=== PATIENT | male | born 1950 | race Caucasian/White ===

== ENCOUNTER 2017-07-04 12:34 | Emergency (ER) | payer BC, OTHER ==
[~2017-07-04] VITALS: Ht 182.9 cm; Wt 65.4 kg
[~2017-07-04 12:34] MED LIST: DOXY50CA PO; FLUT50SP14 NAE; LORA10TA5 PO; MEGA RED PO
[2017-07-04 12:37] VITALS: TEMP 36.9; Ht 182.9 cm; Wt 65.4 kg
[2017-07-04] MEDS ORDERED: SODIUM CHLORIDE 0.9% 1000ML 1,000 ML IV STA (12:58)
[2017-07-04] MEDS ORDERED: DiphenhydrAMINE HCL 50 MG/ML VIAL IV STA (12:58)
[2017-07-04] MEDS ORDERED: PROCHLORPERAZINE 5 MG/ML 2 ML VIAL IV STA (12:58)
[2017-07-04] MEDS ORDERED: METHYLPREDNISOLONE 125 MG VIAL IV STA (12:58)
--- NOTE | 2017-07-04 13:03 | EMERGENCY ROOM VISIT NOTE ---
History Report prepared by Silvestreibyvonne: Dipika Gale Under the Supervision of: Dr. Gay Joya M.D. First contact with patient: 12:42 Chief Complaint: HEADACHE Stated Complaint: HEADACHE History of Present Illness The patient is a 66 year old male who presents to the Emergency Room with complaints of an intermittent headache that began yesterday. The patient states that he has been experiencing a sharp pain on the right side of his head that lasts 5-10 seconds. He denies the pain radiating to any other part of the body or a shooting pain. The patient states that he did not wake through the night with any pain, but his notes that he was restless throughout the night. The patient states that the episodes have been more frequent and states that he has had three since he arrived in the emergency department. He states that he has tried taking Ibuprofen twice without relief of his symptoms. The patient denies any modifying factors. He states that he has approximately 2 beers and 2 glasses of wine per week. The patient denies any visual disturbances, light sensitivity, confusion, speech disturbances, gait disturbances, recent illnesses, cough, chest pain, neck pain, arm pain, weakness , nausea, or vomiting. He denies any tobacco use. Source of History: patient, spouse/significant other () Onset: yesterday Position: head Quality: sharp Timing: intermittent Associated Symptoms: No cough, No neck pain, No chest pain, No nausea, No vomiting, No weakness Review of Systems See HPI for pertinent positives & negatives. A total of 10 systems reviewed and were otherwise negative. Past Medical & Surgical Medical Problems: (1) Skin problem Family History Hypertension Social History Smoking Status: Never Smoker Smokeless Tobacco Use: No Alcohol Use: occasionally Marital Status: Housing Status: lives with significant other Occupation Status: retired Current/Historical Medications Scheduled Atorvastatin (Lipitor), 20 MG PO DAILY Levothyroxine Sodium (Levothyroxine Sodium), Unknown Dose PO DAILY Multivitamin (Multivitamin), 1 TAB PO DAILY Prednisone (Prednisone), 10 MG PO DIRECTED Allergies Uncoded Allergies: SEASONAL (Allergy, UNKNOWN, 03/04/12) Physical Exam Vital Signs Date Time Temp Pulse Resp B/P (MAP) Pulse Ox O2 Delivery O2 Flow Rate FiO2 07/04/17 14:20 60 18 116/58 100 07/04/17 12:37 36.9 65 18 166/71 95 Room Air Physical Exam Vital signs reviewed. General: Well-appearing male, in no significant distress. HEENT: No scleral icterus, PERRLA, neck supple. Atraumatic. No meningeal signs. Cardiovascular: Regular rate and rhythm, no extra sounds. Pulmonary: Clear to auscultation bilaterally, normal work of breathing. Abdomen: Soft, nontender, nondistended, positive bowel sounds. Musculoskeletal: Atraumatic, no peripheral edema. Neurologic: Patient awake alert and oriented x 3, full strength in all 4 extremities. Cranial nerves 2 through 12 grossly intact. Skin: Warm, dry, no rash Medical Decision & Procedures ER Provider Diagnostic Interpretation: Radiology results as stated below per my review and radiologist interpretation: HEAD WITHOUT CONTRAST (CT) CT DOSE: 614.27 mGy.cm HISTORY: Mental status change HEADACHE, right side TECHNIQUE: Multiaxial CT images of the head were performed without the use of intravenous contrast. A dose lowering technique was utilized adhering to the principles of ALARA. Comparison: None. Findings: The paranasal sinuses and mastoid air cells are clear. The calvarium and skull base are intact. The ventricles and sulci are within normal limits. There is no mass, hematoma, midline shift, or acute infarct. Impression: No acute intracranial abnormality. The above report was generated using voice recognition software. It may contain grammatical, syntax or spelling errors. Electronically signed by: Miles Verma M.D. 07/04/2017 1:49 PM Dictated Date/Time: 07/04/2017 1:48 PM Laboratory Results 07/04/17 13:10 Red Blood Count 4.18, Mean Corpuscular Volume 91.1, Mean Corpuscular Hemoglobin 31.1, Mean Corpuscular Hemoglobin Concent 34.1, Mean Platelet Volume 11.7, Neutrophils (%) (Auto) 70.5, Lymphocytes (%) (Auto) 16.6, Monocytes (%) (Auto) 6.9, Eosinophils (%) (Auto) 5.4, Basophils (%) (Auto) 0.6, Neutrophils # (Auto) 3.28, Lymphocytes # (Auto) 0.77, Monocytes # (Auto) 0.32, Eosinophils # (Auto) 0.25, Basophils # (Auto) 0.03 07/04/17 13:10 Test 10/31/17 13:10 White Blood Count 4.65 K/uL (4.8-10.8) Red Blood Count 4.18 M/uL (4.7-6.1) Hemoglobin 13.0 g/dL (14.0-18.0) Hematocrit 38.1 % (42-52) Mean Corpuscular Volume 91.1 fL (80-100) Mean Corpuscular Hemoglobin 31.1 pg (25-34) Mean Corpuscular Hemoglobin Concent 34.1 g/dl (32-36) Platelet Count 182 K/uL (130-400) Mean Platelet Volume 11.7 fL (7.4-10.4) Neutrophils (%) (Auto) 70.5 % Lymphocytes (%) (Auto) 16.6 % Monocytes (%) (Auto) 6.9 % Eosinophils (%) (Auto) 5.4 % Basophils (%) (Auto) 0.6 % Neutrophils # (Auto) 3.28 K/uL (1.4-6.5) Lymphocytes # (Auto) 0.77 K/uL (1.2-3.4) Monocytes # (Auto) 0.32 K/uL (0.11-0.59) Eosinophils # (Auto) 0.25 K/uL (0-0.5) Basophils # (Auto) 0.03 K/uL (0-0.2) RDW Standard Deviation 44.4 fL (36.4-46.3) RDW Coefficient of Variation 13.3 % (11.5-14.5) Immature Granulocyte % (Auto) 0.0 % Immature Granulocyte # (Auto) 0.00 K/uL (0.00-0.02) Erythrocyte Sedimentation Rate 2 mm/hr (0-14) Anion Gap 7.0 mmol/L (3-11) Est Creatinine Clear Calc Drug Dose 65.5 ml/min Estimated GFR () 86.9 Estimated GFR (Non- 75.0 BUN/Creatinine Ratio 12.5 (10-20) Calcium Level 8.7 mg/dl (8.5-10.1) Total Bilirubin 0.6 mg/dl (0.2-1) Direct Bilirubin 0.2 mg/dl (0-0.2) Aspartate Amino Transf (AST/SGOT) 15 U/L (15-37) Alanine Aminotransferase (ALT/SGPT) 20 U/L (12-78) Alkaline Phosphatase 63 U/L (45-117) C-Reactive Protein < 0.29 mg/dl (0-0.29) Total Protein 6.9 gm/dl (6.4-8.2) Albumin 4.0 gm/dl (3.4-5.0) Laboratory results per my review. Medications Administered Medications (Trade) Dose Ordered Sig/David Route Start Time Stop Time Status Last Admin Dose Admin Methylprednisolone Sodium Succinate (Solu-Medrol IV) 125 mg NOW STAT IV 07/04/17 12:58 07/04/17 13:01 DC 07/04/17 13:13 125 MG Sodium Chloride 1,000 ml @ 150 mls/hr [id number] STAT IV 07/04/17 12:58 07/04/17 15:03 DC 07/04/17 13:13 150 MLS/HR Prochlorperazine Edisylate (Compazine Inj) 5 mg NOW STAT IV 07/04/17 12:58 07/04/17 13:02 DC 07/04/17 13:13 5 MG Diphenhydramine HCl (Benadryl Inj) 25 mg NOW STAT IV 07/04/17 12:58 07/04/17 13:02 DC 07/04/17 13:13 25 MG ED Course 1255: Past medical records reviewed. The patient was evaluated in room A2. A complete history and physical examination was performed. 1258: Ordered Benadryl Inj 25 mg IV, Compazine Inj 5 mg IV, Sodium Chloride 1000 ml @ 150 mls/hr IV, Solu-Medrol IV 125 mg IV. 1430: I reevaluated the patient and he is resting comfortably. I discussed the exam findings with him and I discussed the treatment plan. He verbalized complete understanding and agreement. He is ready to go home. Medical Decision DDx: Intracranial hemorrhage, intracranial mass, migraine headache, tension headache , sinusitis, meningitis This pt was evaluated and appeared to be in no distress. IV access was obtained and lab work was drawn. Pt was placed on the ekg monitor. Pt was given IV solumedral, IV compazine and benadryl. CT head is negative. Lab work reveals a normal sed rate/CRP and slightly low WBC and H/H. Pt has little resolution of symptoms with only periodic jabs. We discussed a migraine type headache vs ice pick headaches. There is a chance this maybe a shingles in early stages. There is no rash currently. Pt was advised to f/u with PCP this week and to return to the ED for worsening of symptoms or any medical concerns. Medication Reconcilliation Current Medication List: was personally reviewed by me Blood Pressure Screening Patient's blood pressure: Normal blood pressure Blood pressure disposition: Did not require urgent referral Impression Primary Impression: Idiopathic stabbing headache Scribe Attestation The scribe's documentation has been prepared under my direction and personally reviewed by me in its entirety. I confirm that the note above accurately reflects all work, treatment, procedures, and medical decision making performed by me. Departure Information Dispostion Home / Self-Care Prescriptions Prednisone (Prednisone) 10 Mg Tab 10 MG PO DIRECTED, #31 TAB 40 mg daily for 4 days, 30 mg daily for 3 days, 20 mg daily for 2 days, 10 mg daily for 2 days. Prov: Gay Joya M.D. 07/04/17 Referrals Ceferino Streeter M.D. (PCP) Forms HOME CARE DOCUMENTATION FORM, IMPORTANT VISIT INFORMATION Patient Instructions My [facility] Additional Instructions Diagnosis: Idiopathic stabbing headache Prednisone 40 mg daily for 4 days, 30 mg daily for 3 days, 20 mg daily for 2 days, 10 mg daily for 2 days. Melatonin 3 mg daily as needed for headache. Drink plenty of fluids. Follow up with your doctor this week for reevaluation. Return to the ED for worsening of symptoms or any medical concerns.
[2017-07-04 13:22] LABS: BASO % 0.6 %; BASO ABS # 0.03 K/uL (0-0.2); COMPLETE YES; EOS % 5.4 %; HEMATOCRIT 38.1 % (42-52); LYMPH % 16.6 %; LYMPH ABS # 0.77 K/uL (1.2-3.4); MEAN CELL VOLUME 91.1 fL (80-100); MEAN CORPUSCULAR HEMOGLOBIN 31.1 pg (25-34); MEAN CORPUSCULAR HGB CONC 34.1 g/dl (32-36); MEAN PLATELET VOLUME 11.7 fL (7.4-10.4); MONO % 6.9 %; NEUT % 70.5 %; PLATELET COUNT 182 K/uL (130-400); RED BLOOD COUNT 4.18 M/uL (4.7-6.1); WHITE BLOOD COUNT 4.65 K/uL (4.8-10.8)
[2017-07-04] MEDS ORDERED: LEVO25TA5 PO (13:33)
[2017-07-04] MEDS ORDERED: ATOR-22 PO (13:33)
[2017-07-04] MEDS ORDERED: MULT-506 PO (13:33)
[2017-07-04 13:40] LABS: BLOOD UREA NITROGEN 13 mg/dl (7-18); BUN/CREATININE RATIO 12.5 (10-20); CALCIUM 8.7 mg/dl (8.5-10.1); CARBON DIOXIDE 29 mmol/L (21-32); CHLORIDE 107 mmol/L (98-107); CREATININE 1.04 mg/dl (0.60-1.40); GLUCOSE 79 mg/dl (70-99); POTASSIUM 3.8 mmol/L (3.5-5.1); SODIUM 143 mmol/L (136-145)
[2017-07-04 13:43] LABS: ALKALINE PHOSPHATASE 63 U/L (45-117); ALT/SGPT 20 U/L (12-78); AST/SGOT 15 U/L (15-37); C-REACTIVE PROTEIN < 0.29 mg/dl (0-0.29)
--- NOTE | 2017-07-04 13:50 | DIAGNOSTIC IMAGING REPORT ---
HEAD WITHOUT CONTRAST (CT) CT DOSE: 614.27 mGy.cm HISTORY: Mental status change HEADACHE, right side TECHNIQUE: Multiaxial CT images of the head were performed without the use of intravenous contrast. A dose lowering technique was utilized adhering to the principles of ALARA. Comparison: None. Findings: The paranasal sinuses and mastoid air cells are clear. The calvarium and skull base are intact. The ventricles and sulci are within normal limits. There is no mass, hematoma, midline shift, or acute infarct. Impression: No acute intracranial abnormality. The above report was generated using voice recognition software. It may contain grammatical, syntax or spelling errors. Electronically signed by: Miles Verma M.D. 07/04/2017 1:49 PM Dictated Date/Time: 07/04/2017 1:48 PM
[2017-07-04 14:20] VITALS: BP 116/58; PULSE 60; O2SAT 100
[2017-07-04] MEDS ORDERED: PRED10TA PO (14:29)
== END 2017-07-04 14:50 | disposition home or self-care (01) ==
LOC: C.EDB 12:34 → C.EDA 14:50
DX: R51 Headache (principal); Z87.2 Personal history of diseases of the skin and subcutaneous tissue; Z79.899 Other long term (current) drug therapy; Z82.49 Family history of ischemic heart disease and other diseases of the circulatory system